=== PATIENT | male | born 1990 | race Caucasian/White ===

== ENCOUNTER 2019-12-01 16:46 | Inpatient (IN) | payer OTHER ==
[~2019-12-01] VITALS: Ht 185.4 cm; Wt 118.1 kg
--- NOTE | 2019-12-01 | NUR ---
RECEIVED REPORT FROM ER ON 29 YR OLD MALE WITH RECTAL ABSCESS. 20G PIV IN RT AC NS INFUSING AT 100 ML ON IV PUMP. SITE HEALTHY. PT IS ALERT AND ORIENTED X3. RESPIRATIONS ARE EVEN AND UNLABORED. TELE ON. CLEAR LIQUID DIET. PT VOIDING PER URINAL BUT CAUSE HIM PAIN WHEN MOVE. DILAUDID EFFECTIVE .COOPERATIVE WITH CARE. VS STABLE. CALL LIGHT WITHIN REACH. BED LOCKED AND IN LOW POSITION. NO DISTRESS NOTED.ORIENTED TO MS 2 AND ROOM. NO DISTRESS NOTED.
[2019-12-01] MEDS ORDERED: ONDANSETRON HCL INJ 2MG/ML 2ML 2 MG/ML VIAL IV STA (17:27)
[2019-12-01] MEDS ORDERED: HYDROMORPHONE 1MG/1ML INJ IV STA ×2 (17:27→22:59)
[2019-12-01] MEDS ORDERED: SODIUM CHLORIDE 0.9% 1000ML 1,000 ML IV STA (17:27)
[2019-12-01] MEDS ORDERED: ONDANSETRON HCL INJ 2MG/ML 2ML 2 MG/ML VIAL IV PRN ×2 (17:30→20:45)
[2019-12-01] MEDS ORDERED: MORPHINE SULFATE INJ 4 MG/ML INJ 1ML IV PRN (17:30)
[2019-12-01] MEDS ORDERED: CIPROFLOXACIN 400 MG/D5W 200ML 200 ML IV ONE (17:30)
[2019-12-01 17:46] LABS: BASOPHILS % 0.2 % (0.0-1.0); EOSINOPHILS % 0.2 % (0.0-6.0); LYMPHOCYTES # (AUTO) 1.8 (1.0-3.2); LYMPHOCYTES % 14.5 % (18.0-39.1); MEAN CORPUSCULAR HEMOGLOBIN 21.7 pg (28-32); MEAN CORPUSCULAR HGB CONC 30.3 g/dL (31-35); MEAN CORPUSCULAR VOLUME 71.6 fL (81-99); MONOCYTES % 8.1 % (4.4-11.3); NEUTROPHILS # (AUTO) 9.6 (2.1-6.9); NEUTROPHILS % 76.6 % (38.7-80.0); PLATELET COUNT 353 x10e3/uL (140-360); RED BLOOD COUNT 4.61 x10e6/uL (4.3-5.7); RED CELL DISTRIBUTION WIDTH 17.6 % (11.7-14.4)
[2019-12-01 18:06] LABS: ALANINE AMINOTRANSFERASE 53 IU/L (0-55); ALBUMIN 3.5 g/dL (3.5-5.0); ALBUMIN/GLOBULIN RATIO 0.9 (0.8-2.0); ALKALINE PHOSPHATASE 131 IU/L (40-150); ANION GAP 13.1 mmol/L (8-16); BLOOD UREA NITROGEN 10 mg/dL (7-26); BUN/CREATININE RATIO 10 (6-25); CARBON DIOXIDE 24 mmol/L (22-29); CHLORIDE 107 mmol/L (98-107); CREATININE, SERUM 1.01 mg/dL (0.72-1.25); EST GLOMERULAR FILTRATION RATE > 60 ML/MIN (60-); GLUCOSE 131 mg/dL (74-118); POTASSIUM 4.1 mmol/L (3.5-5.1); SODIUM 140 mmol/L (136-145)
[2019-12-01] MEDS ORDERED: METRONIDAZOLE 500MG/NS 100ML 100 ML IV ONE (18:30)
[2019-12-01] MEDS ORDERED: ACETAMINOPHEN 325 MG TAB ONE (19:26)
[2019-12-01] MEDS ORDERED: ACETAMINOPHEN 325 MG TAB PO PRN (19:30)
[2019-12-01] MEDS ORDERED: DOCUSATE SODIUM 100 MG CAP PO PRN (20:45)
[2019-12-01] MEDS ORDERED: MELATONIN 5 MG TABLET PO PRN (20:45)
[2019-12-01] MEDS ORDERED: HYDROMORPHONE 1MG/1ML INJ IV PRN ×2 (20:45→23:15)
[2019-12-01] MEDS ORDERED: METRONIDAZOLE 500MG/NS 100ML 100 ML IV SCH (22:00)
[2019-12-01] MEDS: SODIUM CHLORIDE 0.9% 1000ML 1,000 ML IV SCH (23:32)
[2019-12-01] MEDS: HYDROMORPHONE 1MG/1ML INJ IV PRN (23:32)
[2019-12-02] VITALS (10 sets, daily range): BP systolic 100–147; BP diastolic 56–86
--- NOTE | 2019-12-02 02:06 | History and Physical ---
CHIEF COMPLAINT: Rectal pain. HISTORY OF PRESENT ILLNESS: A 29-year-old male with no past medical history. He comes in with a 2-week history of rectal pain described with acute onset that began two weeks ago that progressively gotten worse over the last 2 weeks. He denies any constipation or any hemorrhoids. He does endorse having similar pain approximately one year or two years ago and he states that he was in [place] at that time, and he was in the process of getting a colonoscopy as his GI doctor wanted to rule out Crohn's disease. He now presents with worsening rectal pain. The patient was evaluated at [facility], had a CT scan that shows evidence of colitis and a possible perirectal abscess. The patient was then sent to our facility for evaluation by General surgeon. The patient was seen and evaluated in the ER. He is currently awake, alert, and oriented. Vital signs were stable during my evaluation. He states that the morphine does help with this pain. He denies any trauma to his rectum. Denies any blood. He reports it is very indurated and hard in nature. No fever at home. REVIEW OF SYSTEMS: Pertinent positives: Rectal pain. The rest of 14-point review of systems have been reviewed with the patient and are negative. ALLERGIES: PENICILLIN. HOME MEDICATIONS: None. PAST MEDICAL HISTORY: Reports none. PAST SURGICAL HISTORY: Reports none. FAMILY HISTORY: Hypertension and diabetes. SOCIAL HISTORY: No drugs, no alcohol, does not smoke. Good social support. PHYSICAL EXAMINATION: VITAL SIGNS: Temperature is 98.4, pulse 75, respiratory rate 16, blood pressure 131/78, pulse ox 98% on room air. GENERAL: In acute distress. Alert and oriented x3. Cooperative on examination. HEENT: Head is normocephalic, atraumatic. Eyes; pupils are equal, round, and reactive to light bilaterally. Extraocular movements intact bilaterally. Throat; no evidence of erythema or exudates in the posterior pharynx. Has poor dentition. NECK: Supple. Good range of motion. PULMONARY: Clear to auscultation bilaterally. No wheezing, rales, or rhonchi. No crackles appreciated. CARDIOVASCULAR: Positive S1, S2. No murmurs, rubs, or gallops appreciated. ABDOMEN: Soft, nondistended, and nontender to palpation. Bowel sounds present. : We will defer rectal examination to the General surgeon and GI specialist consulted on this case. SKIN: Intact. Warm to touch. Good cap refill. PSYCHIATRIC: Normal affect and mood. EXTREMITIES: No edema. Good range of motion throughout. LABORATORY DATA: Labs show white count 12.4, hemoglobin 10, hematocrit 33, MCV 71.6, and platelets of 353. Chemistry; sodium 140, potassium 4.1, chloride 107, bicarb 24, anion gap of 13, BUN is 10 and creatinine is 1, glucose 131. Serology coronavirus PCR pending. IMAGING STUDIES: This is a CT abdomen and pelvis with IV contrast performed at [facility] that shows impression no rectal mass, lesion, or bowel wall mass lesion or abscess formation seen. There is a mild dilatation of the transverse colon with air-fluid levels consistent with nonspecific ileus or colitis. The remainder of the bowel is normal. There is mild dilatation of the appendix containing a high CT attenuation without acute periappendiceal inflammatory edema and acute appendicitis is unlikely. There is multiple small subcentimeter lymph nodes in the perirectal region, in the pelvis and in the retroperitoneum, in the periaortic region as well as small subcentimeter mesenteric node seen greatest at the pericecal region consistent with mesenteric adenitis. Borderline splenomegaly. No other acute pathology seen in the abdomen and pelvis. IMPRESSION: 1. Concerns for perirectal abscess with underlying colitis seen on imaging studies. 2. Abdominal lymphadenopathy. PLAN: At this time, the lymph node enlargement could be secondary to inflammatory changes from current infection. As for his perirectal abscess or concerns of, General Surgery and GI has been consulted. The patient reports having not a history, but presumed diagnosis of Crohn's disease, in which he was supposed to get a colonoscopy, in which he did not get about a year ago. He had reported seeing a GI specialist in [place], was supposed to follow up and never did. At this time, continue with IV antibiotics with Cipro and Flagyl. Consult with ID. Go ahead and get blood cultures x2. Get a.m. labs. He will be on Lovenox after potential surgery tomorrow. We will go ahead and put him on RENUKA hoses. N.p.o. after midnight for presumed procedure. Consultants involved GI, General Surgery, and ID and we will continue with pain control. MD BLAIR Lund/DEBBIEL /[id number]
[2019-12-02] MEDS: HYDROMORPHONE 1MG/1ML INJ IV PRN ×6 (03:02→22:50)
[2019-12-02] MEDS: ONDANSETRON HCL INJ 2MG/ML 2ML 2 MG/ML VIAL IV PRN ×2 (03:07→22:51)
[2019-12-02] MEDS ORDERED: CIPROFLOXACIN 400 MG/D5W 200ML 200 ML IV SCH (05:00)
[2019-12-02] MEDS: METRONIDAZOLE 500MG/NS 100ML 100 ML IV SCH ×3 (06:26→18:29)
[2019-12-02] MEDS: SODIUM CHLORIDE 0.9% 1000ML 1,000 ML IV SCH ×2 (06:45→16:45)
--- NOTE | 2019-12-02 07:05 | NUR ---
BEDSIDE SHIFT REPORT RECEIVED FROM PM NURSE. PT AWAKE, ALERT, ORIENTED, IN STABLE CONDITION. WILL CONTINUE TO MONITOR.
[2019-12-02 07:14] LABS: BASOPHILS % 0.2 % (0.0-1.0); EOSINOPHILS % 0.1 % (0.0-6.0); HEMATOCRIT 32.1 % (38.2-49.6); HEMOGLOBIN 9.7 g/dL (14.0-18.0); LYMPHOCYTES # (AUTO) 1.4 (1.0-3.2); LYMPHOCYTES % 10.5 % (18.0-39.1); MEAN CORPUSCULAR HEMOGLOBIN 21.5 pg (28-32); MEAN CORPUSCULAR HGB CONC 30.2 g/dL (31-35); MEAN CORPUSCULAR VOLUME 71.2 fL (81-99); MONOCYTES # (AUTO) 1.2 (0.2-0.8); MONOCYTES % 8.7 % (4.4-11.3); NEUTROPHILS # (AUTO) 10.7 (2.1-6.9); NEUTROPHILS % 80.1 % (38.7-80.0); PLATELET COUNT 346 x10e3/uL (140-360); RED BLOOD COUNT 4.51 x10e6/uL (4.3-5.7); RED CELL DISTRIBUTION WIDTH 17.4 % (11.7-14.4)
[2019-12-02 07:26] LABS: ALANINE AMINOTRANSFERASE 45 IU/L (0-55); ALBUMIN 3.4 g/dL (3.5-5.0); ALBUMIN/GLOBULIN RATIO 0.9 (0.8-2.0); ALKALINE PHOSPHATASE 119 IU/L (40-150); ANION GAP 12.4 mmol/L (8-16); BLOOD UREA NITROGEN 7 mg/dL (7-26); BUN/CREATININE RATIO 7 (6-25); CALCIUM 8.8 mg/dL (8.4-10.2); CARBON DIOXIDE 23 mmol/L (22-29); CHLORIDE 105 mmol/L (98-107); CREATININE, SERUM 0.99 mg/dL (0.72-1.25); EST GLOMERULAR FILTRATION RATE > 60 ML/MIN (60-); GLUCOSE 119 mg/dL (74-118); POTASSIUM 3.4 mmol/L (3.5-5.1); SODIUM 137 mmol/L (136-145)
[2019-12-02] MEDS ORDERED: LIDOCAINE HCL 1% LOCAL INJ 20 ML VIAL ONE (11:31)
[2019-12-02] MEDS ORDERED: BUPIVACAINE 0.5%/EPI 30 ML SDV INJ ONE (11:31)
[2019-12-02] MEDS ORDERED: LIDOCAINE HCL 2% 30 ML TUBE ONE (11:31)
--- NOTE | 2019-12-02 11:32 | NUR ---
PT TAKEN DOWN TO OR FOR SURGERY; LEFT VIA STRETCHER IN STABLE CONDITION.
[2019-12-02 11:42] LABS: FERRITIN 4.18 ng/mL (21.81-274.66)
[2019-12-02] MEDS ORDERED: METRONIDAZOLE 500MG/NS 100ML 100 ML IV ONE (12:00)
[2019-12-02] MEDS ORDERED: HYDROMORPHONE 1MG/1ML INJ ONE (12:28)
--- NOTE | 2019-12-02 13:12 | NUR ---
REPORT FROM RECOVERY, PT HAD I&D OF RECTAL ABSCESS. MD PLACED PACKING TO PERIRECTAL ABSCESS WITH ABD PAD ON TOP AND MESH PANTIES. PT HAD STEVENSON PLACED, 16 KYRGYZ. PT ALSO RECEIVED 1 DOSE OF DILAUDID AND SLEEPING COMFORTABLY. PT LEFT ON 2L NC, 98% O2 SAT. PT'S BLOOD PRESSURE 131/84, HR 93. PT'S IV INTACT AND PATENT, LAST TEMP 98.1.
--- NOTE | 2019-12-02 13:22 | NUR ---
PT RETURNED FROM SURGERY TO ROOM 210, PT AWAKE, SPEAKING FULL SENTENCES, ORIENTED X3, NO C/O AT THIS TIME.
[2019-12-02] MEDS ORDERED: ACETAMINOPHEN 1000 MG/100 ML IV PRN (15:00)
[2019-12-02] MEDS ORDERED: POTASSIUM CHLORIDE 20 MEQ TAB CR PO ONE (15:00)
[2019-12-02] MEDS ORDERED: FENTANYL CITRATE/PF 100MCG/2 ML INJ ONE (15:08)
[2019-12-02] MEDS ORDERED: MIDAZOLAM HCL 2 MG/2 ML VIAL ONE (15:08)
--- NOTE | 2019-12-02 16:38 | Progress Note ---
DATE: Medicine Progress Note SUBJECTIVE: The patient underwent surgery today by General Surgery for perirectal abscess with the fistulectomy performed today. The patient did well postoperatively. I saw the patient postoperatively, he was alert, awake, and oriented with no complaints. PHYSICAL EXAMINATION: VITAL SIGNS: Temperature is 98.1, pulse 98, respiratory rate 16, blood pressure 131/84, and pulse ox 98% on 2 L nasal cannula. GENERAL: Not in acute distress. Alert and oriented x3. Cooperative on exam. PULMONARY: Clear to auscultation bilaterally. No wheezing, rales, or rhonchi. No crackles appreciated. CARDIOVASCULAR: Positive S1, S2. No murmurs, rubs, or gallops. ABDOMEN: Soft, nontender to palpation. Bowel sounds present. MUSCULOSKELETAL: Strength is 5/5 throughout. No evidence of any muscle deficits on examination. SKIN: Intact, warm to touch. Good cap refill. PSYCHIATRIC: Normal affect and mood. EXTREMITIES: No edema. Good range of motion throughout. LABORATORY FINDINGS: Show white count 13, hemoglobin 9.7, hematocrit 32, platelets of 346, MCV is 71. Sodium 137, potassium 3.4, chloride 105, bicarb 23, anion gap of 12. Iron saturation is 9%. MICROBIOLOGY: None. IMAGING: None. IMPRESSION: 1. Status post perirectal abscess with fistulectomy performed today by General Surgery, 12/02/2019. 2. Abdominal lymphadenopathy. 3. Iron deficiency anemia. PLAN: At this time, continue with postoperative care with pain control and local wound care. General Surgery is following. Continue with IV antibiotics, for which ID has been consulted. Await final wound cultures for a targeted IV antibiotic therapy. GI has been consulted. This patient will likely need some sort of colonoscopy, this patient may have underlying Crohn disease, but we will defer that to GI. Continue with RENUKA price for now. Get a.m. labs. Monitor closely. Discussed plan of care with nursing staff. MD BLAIR Lund/DEBBIEL /[id number]
[2019-12-02] MEDS: LEVOFLOXACIN 500MG/D5W 100ML 100 ML IV SCH (17:24)
[2019-12-02] MEDS ORDERED: SEVOFLURANE INHAL SOLN 250 ML PEN BTL ONE (18:22)
[2019-12-02] MEDS ORDERED: ONDANSETRON HCL INJ 2MG/ML 2ML 2 MG/ML VIAL ONE (18:22)
[2019-12-02] MEDS ORDERED: LIDOCAINE HCL 2% LOCAL INJ 5 ML SDV VIAL INJ ONE (18:22)
[2019-12-02] MEDS ORDERED: DEXAMETHASONE SOD PHOS INJ 4 MG/ML VIAL ONE (18:22)
[2019-12-02] MEDS ORDERED: PROPOFOL IV EMULSION 10 MG/ML 20 ML VIAL ONE (18:22)
--- NOTE | 2019-12-02 19:14 | Operative Report ---
DATE OF PROCEDURE: 12/02/2019 SURGEON: Rakesh Chen MD PREOPERATIVE DIAGNOSIS: Perirectal abscess with fistula. POSTOPERATIVE DIAGNOSIS: Perirectal abscess with fistula. OPERATION PERFORMED: Incision and drainage of perirectal abscess and fistulectomy. ANESTHESIA: General. COMPLICATIONS: None. ESTIMATED BLOOD LOSS: Minimal. DESCRIPTION OF PROCEDURE: With the patient lying in bed in the lithotomy position under good general anesthesia, the perineum was prepped with Betadine solution and draped in the usual manner. Examination at this point revealed the presence of a perirectal abscess at the 1 o'clock position with a fluctuant abscess within a clear opening anteriorly, where there was pus gushing from the internal opening. The abscess cavity was then entered at the 1 o'clock position and a fistula tract was easily identified and a fistula probe easily traveled down to the internal opening. The entire fistula tract was then opened up and divided over the necrotic tissue was removed. The wound was then copiously irrigated with dilute Betadine solution and the wound was then packed with quarter-inch iodoform gauze. A dressing was applied. The sponge, lap, and needle counts were correct. The patient tolerated the procedure well and returned to the recovery room in stable condition. MD ADELSO Haskins/MODL /[id number]
--- NOTE | 2019-12-02 19:15 | NUR ---
BEDSIDE SHIFT REPORT RECEIVED FROM DAY RN. PT IS ALERT AND ORIENTED X3. RESPIRATIONS ARE EVEN AND UNLABORED. PT RESTING IN BED ON SIDE. PT REPORTS PAIN LESS AFTER SURGERY TODAY. RT 20G PIV - NS INFUSING AT 100 ML/HR. STEVENSON CATH PATENT AND DRAINING CLEAR YELLOW URINE.NO DISTRESS NOTED. CALL LIGHT WITHIN REACH. BED LOCKED AND IN LOW POSITION. BED ALARM ON. REMINDED PT TO CALL FOR ASSISTANCE TO BATHROOM.
[2019-12-03] VITALS (7 sets, daily range): BP systolic 96–134; BP diastolic 55–72
[2019-12-03] MEDS: METRONIDAZOLE 500MG/NS 100ML 100 ML IV SCH ×4 (00:23→17:28)
[2019-12-03] MEDS: HYDROMORPHONE 1MG/1ML INJ IV PRN ×5 (02:25→22:00)
[2019-12-03] MEDS: SODIUM CHLORIDE 0.9% 1000ML 1,000 ML IV SCH ×2 (05:42→15:15)
[2019-12-03] MEDS: ONDANSETRON HCL INJ 2MG/ML 2ML 2 MG/ML VIAL IV PRN ×2 (05:54→19:35)
[2019-12-03 06:21] LABS: BASOPHILS % 0.3 % (0.0-1.0); HEMATOCRIT 32.6 % (38.2-49.6); HEMOGLOBIN 9.5 g/dL (14.0-18.0); LYMPHOCYTES % 17.5 % (18.0-39.1); MEAN CORPUSCULAR HEMOGLOBIN 21.2 pg (28-32); MEAN CORPUSCULAR HGB CONC 29.1 g/dL (31-35); MEAN CORPUSCULAR VOLUME 72.8 fL (81-99); MONOCYTES # (AUTO) 1.2 (0.2-0.8); MONOCYTES % 10.1 % (4.4-11.3); NEUTROPHILS # (AUTO) 8.3 (2.1-6.9); NEUTROPHILS % 71.8 % (38.7-80.0); PLATELET COUNT 339 x10e3/uL (140-360); RED BLOOD COUNT 4.48 x10e6/uL (4.3-5.7); RED CELL DISTRIBUTION WIDTH 17.6 % (11.7-14.4)
[2019-12-03 06:41] LABS: BLOOD UREA NITROGEN 9 mg/dL (7-26); BUN/CREATININE RATIO 10 (6-25); CARBON DIOXIDE 26 mmol/L (22-29); CHLORIDE 107 mmol/L (98-107); CREATININE, SERUM 0.87 mg/dL (0.72-1.25); EST GLOMERULAR FILTRATION RATE > 60 ML/MIN (60-); GLUCOSE 98 mg/dL (74-118); SODIUM 141 mmol/L (136-145)
--- NOTE | 2019-12-03 07:00 | NUR ---
BEDSIDE SHIFT REPORT RECEIVED FROM THE CARDIOLOGY CONSULTANTS RN. EDUCATED PT ABOUT FALL PRECAUTIONS. PT VERBALIZED UNDERSTANDING. CALL LIGHT WITH IN EASY REACH. INSTRUCTED PT TO USE CALL LIGHT FOR ALL THE NEEDS. BED IS LOW AND LOCKED. SIDE RAILS X2. BED ALARM IS ON. PT DENIES NEEDS AT THIS TIME.
[2019-12-03] MEDS: HYDROCODONE/APAP 7.5MG-325MG 1 EA TAB PO PRN ×2 (09:27→16:46)
[2019-12-03] MEDS ORDERED: SODIUM FERRIC GLUCONATE COMPLX 125 MG in SODIUM CHLORIDE 0.9% 100 ML 100 ML IV ONE (09:30)
[2019-12-03] MEDS: PROMETHAZINE 12.5MG/ NACL 0.9% 12.5 MG/50 ML BAG IV PRN ×2 (10:05→22:00)
--- NOTE | 2019-12-03 12:45 | NUR ---
SITZ BATH GIVEN PER DR Chel LÓPEZ.
--- NOTE | 2019-12-03 15:22 | Progress Note ---
DATE: SUBJECTIVE: Mr. Abarca is feeling better. There are no new complaints. Status post I and D, unfortunately there was no culture sent. PHYSICAL EXAMINATION: GENERAL: Currently alert, oriented, does not seem in acute distress. VITAL SIGNS: Stable, afebrile. HEENT: Not icteric. NECK: Supple. CHEST: Clear. HEART: S1-S2. ABDOMEN: Soft. Bowel sounds present. No tenderness. EXTREMITIES: No edema. Wound is packed. IMPRESSION AND PLAN: 1. Perirectal abscess, status post fistulectomy, obesity. From Infectious Disease point of view, the patient is doing well. Continue with local care. Continue with IV antibiotic for now. Once clinically better, we will change him to oral antibiotic, Levaquin and Flagyl for 14 days. We will keep him on IV antibiotic for the time being. 2. Anemia. 3. We will follow. MD ADENIKE Sharma/ARNALDO /[id number]
[2019-12-03] MEDS: LEVOFLOXACIN 500MG/D5W 100ML 100 ML IV SCH (16:23)
--- NOTE | 2019-12-03 16:30 | NUR ---
STEVENSON REMOVED PER THE ORDER BY DR. Chel LÓPEZ. TIP INTACT. NO DISTRESS NOTED. PT DENIED FURTHER NEEDS.
--- NOTE | 2019-12-03 17:00 | NUR ---
PT VOIDED. 150 ML CLEAR YELLOW URINE NOTED IN URINAL.
--- NOTE | 2019-12-03 19:00 | NUR ---
Bedside nursing report completed with morning nurse. Pt alert and oriented to name, sitting on toilet, soft BM. Mild pain, medicated by morning nurse. Rectal iodoform dressing coming out, removed by patient. Gauze and mesh underwear applied. Call light within reach.
--- NOTE | 2019-12-03 19:15 | NUR ---
BEDSIDE SHIFT REPORT GIVEN TO THE [employer] MACHINE RN. PT DENIED FURTHER NEEDS.
--- NOTE | 2019-12-03 21:44 | Progress Note ---
DATE: 12/03/2019 Medicine Progress Note SUBJECTIVE: The patient reports doing much better today. His diet has been advanced. He has some minimal pain, but much improved tremendously. No overnight events. OBJECTIVE: VITAL SIGNS: Temperature 99, pulse 83, respiratory rate 17, blood pressure 134/72, pulse ox 96% on room air. GENERAL: In acute distress. Alert and oriented x3. Cooperative on exam. HEENT: Head is normocephalic, atraumatic. Eyes; pupils are reactive to light bilaterally. PULMONARY: Clear to auscultation bilaterally. No wheezing, rales, or rhonchi. No crackles appreciated. CARDIOVASCULAR: Positive S1 and S2. No murmurs, rubs, or gallops. ABDOMEN: Soft, nondistended, and nontender to palpation. Bowel sounds present. MUSCULOSKELETAL: No evidence of any muscle deficits on examination. NEUROLOGICAL: Alert and oriented x3. SKIN: Intact, warm to touch. Good cap refill. PSYCHIATRIC: Normal affect and mood. EXTREMITIES: No edema. Good range of motion throughout. LABORATORY DATA: Labs show white count of 11.5, hemoglobin 9.5, hematocrit 33, MCV still low at 72, platelets of 339. Chemistry; sodium 141, potassium 4, chloride 107, bicarb 26, anion gap of 12, BUN is 0.87. His iron saturation 9%. There are several tumour markers that are still pending. IMPRESSION: 1. Status post perirectal abscess with fistulectomy performed on 12/02/2019, by General Surgery. 2. Abdominal lymphadenopathy. 3. Iron deficiency anemia. 4. Underlying colitis. PLAN: At this time, the patient is doing well. Continue with postop care and pain control. Local wound care. General Surgery is following. As per ID, continue with IV antibiotics and discharged on oral Flagyl and Levaquin for 14 days. As per GI, the patient will follow up as an outpatient 3-4 weeks after his colitis is resolved and does need a colonoscopy for possible Crohn's evaluation. As per Hematology, he will continue with iron infusion and outpatient followup in terms of the lymphadenopathy with further imaging as an outpatient. We will continue same plan of care. Monitor closely. Get a.m. labs. Possible discharge on Thursday if cleared by Surgery. Jiries S Dahu, MD JSD/MODL /[id number]
[2019-12-04 00:15] VITALS: BP 104/59
[2019-12-04] MEDS ORDERED: CYANOCOBALAMIN INJ 1,000 MCG/ML VIAL IM STA (00:41)
[2019-12-04] MEDS: METRONIDAZOLE 500MG/NS 100ML 100 ML IV SCH ×3 (01:00→11:38)
[2019-12-04 04:35] VITALS: BP 117/76
[2019-12-04] MEDS ORDERED: IRON SUCROSE 100 MG in SODIUM CHLORIDE 0.9% 100 ML 100 ML IV SCH ×2 (05:00→09:30)
[2019-12-04] MEDS: HYDROMORPHONE 1MG/1ML INJ IV PRN (05:00)
[2019-12-04] MEDS: SODIUM CHLORIDE 0.9% 1000ML 1,000 ML IV SCH (05:00)
--- NOTE | 2019-12-04 05:35 | NUR ---
Left message with Dr. Chris Goff on-call, order for Venofer cannot be filled until Pharmacy arrives. Awaiting call back for further instructions.
[2019-12-04 05:49] LABS: BASOPHILS % 0.5 % (0.0-1.0); EOSINOPHILS # (AUTO) 0.1 (0.0-0.4); EOSINOPHILS % 0.7 % (0.0-6.0); HEMATOCRIT 32.2 % (38.2-49.6); HEMOGLOBIN 9.4 g/dL (14.0-18.0); LYMPHOCYTES # (AUTO) 2.4 (1.0-3.2); LYMPHOCYTES % 29.9 % (18.0-39.1); MEAN CORPUSCULAR HEMOGLOBIN 21.2 pg (28-32); MEAN CORPUSCULAR HGB CONC 29.2 g/dL (31-35); MEAN CORPUSCULAR VOLUME 72.7 fL (81-99); MONOCYTES # (AUTO) 0.8 (0.2-0.8); MONOCYTES % 9.7 % (4.4-11.3); NEUTROPHILS # (AUTO) 4.8 (2.1-6.9); NEUTROPHILS % 58.5 % (38.7-80.0); PLATELET COUNT 358 x10e3/uL (140-360); RED BLOOD COUNT 4.43 x10e6/uL (4.3-5.7); RED CELL DISTRIBUTION WIDTH 17.8 % (11.7-14.4)
[2019-12-04 06:20] LABS: ANION GAP 13.6 mmol/L (8-16); BLOOD UREA NITROGEN 8 mg/dL (7-26); BUN/CREATININE RATIO 9 (6-25); CALCIUM 8.7 mg/dL (8.4-10.2); CARBON DIOXIDE 24 mmol/L (22-29); CHLORIDE 108 mmol/L (98-107); CREATININE, SERUM 0.93 mg/dL (0.72-1.25); EST GLOMERULAR FILTRATION RATE > 60 ML/MIN (60-); GLUCOSE 104 mg/dL (74-118); POTASSIUM 3.6 mmol/L (3.5-5.1); SODIUM 142 mmol/L (136-145)
--- NOTE | 2019-12-04 06:45 | NUR ---
Pt lying quietly in bed, RR 18 even and unlabored. Left side lying. No acute distress noted.
[2019-12-04 07:36] VITALS: BP 111/58
[2019-12-04 08:14] VITALS: BP 111/58
[2019-12-04] MEDS ORDERED: CYANOCOBALAMIN INJ 1,000 MCG/ML VIAL IM SCH (09:00)
[2019-12-04] MEDS: HYDROCODONE/APAP 7.5MG-325MG 1 EA TAB PO PRN (09:59)
--- NOTE | 2019-12-04 10:29 | NUR ---
Received bedside shift report from off going nurse. Patient is in stable condition, no s/s of distress noted. Telemetry applied and working. IV to the right forearm Asymptomatic and patient Fluids running @ 100ml/hr , with transparent dressing applied C/D/I. Bed in lowest position and locked. Call light within reach.
[2019-12-04 12:00] VITALS: BP 128/64
--- NOTE | 2019-12-04 14:25 | NUR ---
PT IS A 3 DAY OBS. CALL TO [facility] FOR INPT ORDER, UNLESS HE PLANS TO DC HOME TODAY. PT IS RECEIVING PAIN MEDS ATC, IV ABX AND WOUND CARE. WILL AWAIT CALL BACK.
[2019-12-04] MEDS ORDERED: FLAGYL250 MG PO (15:19)
[2019-12-04] MEDS ORDERED: LEVAQUIN500 MG PO (15:21)
[2019-12-04] MEDS ORDERED: TYLENOL WITH C1 EACH PO (15:21)
--- NOTE | 2019-12-04 16:12 | NUR ---
Patient discharged home-Patient off the unit @ 1600 via ambulation accompanied by an RN to the lobby. Patient in stable condition, no s/s of distress noted. No pain voiced. IV access removed with tip intact. All personal belongings taken with the patient. Discharge teaching and instructions given to the patient. Patient verbalized understanding by the patient.
--- NOTE | 2019-12-04 16:37 | Discharge Summary ---
FINAL DISCHARGE DIAGNOSES: 1. Status post perirectal abscess with fistulectomy performed on 12/02/2019 by General Surgery. 2. Abdominal lymphadenopathy -- outpatient followup with Hematology. 3. Iron-deficiency anemia. 4. Colitis, concerning for underlying Crohn's. CONSULTANTS: 1. GI. 2. General Surgery. 3. Hematology. 4. ID. PHYSICAL EXAMINATION: VITAL SIGNS: Temperature is 98, pulse 76, respiratory rate is 20, blood pressure 128/64, pulse ox 96% on room air. LABORATORY DATA: Labs show white count 8.1, hemoglobin 9.4, hematocrit 32, platelets of 358. Chemistry, sodium 142, potassium 3.6, chloride 108, bicarb 24, anion gap of 13. BUN is 8, creatinine 0.93, glucose 104. Calcium is 8.7. His alpha-fetoprotein 3.1. CEA 2.7, CA-19-9 is 3, CA-125 is 7.3, and folic acid 12.3. Vitamin B12 was 608, iron saturation 9%. Atypical p-ANCA was pending. Serology coronavirus was negative. MICROBIOLOGY: None. IMAGING DATA: Imaging was performed at the outside ER that is in the chart, which showed no evidence of rectal mass lesion or abdominal wall mass lesion or abscess formation. There is some mild dilatation of the transverse colon with air-fluid levels consistent with nonspecific ileus or colitis. There are multiple small subcentimeter lymph nodes in the perirectal region as well as in the pelvis and retroperitoneum. Some mild dilatation of the appendix, but no evidence of acute appendicitis. HOSPITAL COURSE: A 29-year-old male, who was sent in from an outside freestanding ER to our ER needing an admission for further evaluation and management due to underlying rectal abscess. Imaging studies performed at the outside ER showed no evidence of any rectal abscess, but physical exam was consistent with a rectal abscess needing further evaluation and management. General Surgery was consulted and the patient underwent on 12/02/2019, a status post perirectal abscess drainage with a fistulectomy. Postoperatively, the patient was doing well with no complaints. There was some concern that the patient may have underlying Crohn's based on the underlying rectal fistula that was noted in surgery. GI was consulted and the patient was recommended to follow up in 3 to 4 weeks for an outpatient colonoscopy. The patient also had abdominal lymphadenopathy, which could be secondary to underlying infectious etiology. He is maintained on broad-spectrum IV antibiotics as per ID was following. All cultures were negative. He was also found to have iron-deficiency anemia, requiring IV iron infusion and Hematology was consulted. The patient improved throughout the hospital course, back to normal baseline with no complaints. He was discharged on oral antibiotics. On the day of discharge, vital signs were stable, labs reviewed and stable. The patient is seen, evaluated, and examined thoroughly on the day of discharge. No other complaints. The patient verbalized understanding and agrees to plan of care to follow up accordingly as an outpatient with the primary care physician in 1 week, General Surgery in 7 to 10 days, GI in 3 to 4 weeks, Hematology in 2 weeks' time. The patient was discharged on oral antibiotics as well as pain control as recommendations by all the consultants. The patient has been cleared for discharge by all consultants. MEDICATIONS: See med reconciliation form. DISPOSITION: To home. CONDITION: Stable. DIET: Heart healthy. In the event of any worsening symptoms, the patient advised to come back to the ED for further evaluation. Discharge summary took greater than 35 minutes. Once again, the patient was educated about following up with all the consultants as described above. MD BLAIR Lund/ARNALDO /[id number]
--- NOTE | 2019-12-05 10:04 | Consultation ---
DATE OF CONSULTATION: HISTORY OF PRESENT ILLNESS: A 29-year-old white male, denies any past medical history, comes in with 2 weeks history of pain. The patient has history of hemorrhoids, comes in with pain perirectal area. He was seen by GI. The patient was supposed to get colonoscopy, comes to the emergency room with pain in the rectal area. He was seen by GI, was seen by surgery and was found to have perirectal abscess. He underwent debridement today. PAST MEDICAL HISTORY: Denies. PAST SURGICAL HISTORY: As above. ALLERGIES: NKA. SOCIAL HISTORY: There is no smoking, drug abuse, or alcohol abuse. FAMILY HISTORY: Unremarkable. PHYSICAL EXAMINATION: GENERAL: Currently alert and oriented, does not seem in acute distress. VITAL SIGNS: Stable. Currently afebrile. HEENT: He is not icteric. NECK: Supple. CHEST: Clear. HEART: S1 and S2. ABDOMEN: Soft. IMPRESSION: I think the patient has a rectal abscess. Agree with Levaquin and Flagyl. Culture sensitivity is pending. We will modify after we re-evaluate in the morning. MD ADENIKE Sharma/ARNALDO /[id number]
== END 2019-12-04 15:56 | disposition home or self-care (01) | DRG 333 ==
LOC: ER 16:46 → ERHOLD 17:35 → MED/SURG2 12-02 00:02 → OBSVTOIN 12-04 14:45
PROVIDERS: ADMIT Internal Medicine; ATTEND Internal Medicine
PROC: 0DBP0ZZ Excision of Rectum, Open Approach (ICD-10-PCS; principal; 2019-12-02 11:56)
DX: K61.1 Rectal abscess (principal); K50.90 Crohn's disease, unspecified, without complications; R59.0 Localized enlarged lymph nodes; D50.9 Iron deficiency anemia, unspecified; E66.9 Obesity, unspecified; Z68.34 Body mass index [BMI] 34.0-34.9, adult
CPT/HCPCS: 36415; 80048; 80053; 82105; 82378; 82607; 82728; 82746; 83540; 84466; 85025; 85045; 85651; 86140; 86256; 86301; 86304; 86671; 87635; 96361; 99284; G0378; J1100; J1170; J1756; J1956; J2001; J2250; J2270; J2405; J2550; J2916; J3010; J3420; J7030

== ENCOUNTER → 2020-02-14 | Day surgery (SDC) | payer OTHER ==
[~2020-02-14] MED LIST: FLAGYL250 MG PO; HYOSCYAMINE 0.125 MG TAB ONE; LEVAQUIN500 MG PO; LIDOCAINE HCL 2% LOCAL INJ 5 ML SDV VIAL INJ ONE; PANTOPRAZOLE 40 MG 10ML VIAL ONE; PROPOFOL IV EMULSION 10 MG/ML 20 ML VIAL ONE; TYLENOL WITH C1 EACH PO
[2020-02-14 12:30] VITALS: BP 122/81
--- NOTE | 2020-02-14 12:54 | Operative Report ---
DATE OF PROCEDURE: 02/14/2020 SURGEON: Gabe Goff MD PROCEDURES: EGD with biopsies and colonoscopy with biopsies. INDICATIONS FOR EGD: Heartburn, indigestion. INDICATIONS FOR COLONOSCOPY: Diarrhea, rectal bleeding. MEDICATIONS: The patient was done under MAC, please see anesthesiologist's note. PROCEDURE IN DETAIL: With the patient in the left lateral decubitus position, a flexible fiberoptic Olympus gastroscope was introduced into the esophagus under direct visualization without any difficulty. There was some patchy erythema noted in distal esophagus. The scope was then advanced with ease into the stomach. Mucosa overlying the antrum and the body revealed some patchy erythema and [id number] edema, and biopsies were obtained and sent to stain for H. pylori. Pylorus was of normal contour and shape, was intubated with ease and the scope was advanced all the way to the second portion of the duodenum. Biopsies were obtained from the proximal second portion and the duodenal bulb to rule out sprue. The scope was then withdrawn back into the stomach and retroflexed, mucosa overlying the fundus and the cardia appeared to be within normal limits. The scope was then straightened out, it was subsequently withdrawn, and the patient tolerated the procedure well. IMPRESSION: 1. Distal esophagitis, mild. 2. Gastritis, biopsied, biopsies sent to stain for Helicobacter pylori. 3. Rule out sprue. PLAN: Follow up histology. Initiate Protonix 40 mg one p.o. q.a.m. before meals. The patient was then turned around and after adequate lubrication of the anal canal, a flexible fiberoptic Olympus colonoscope was inserted into the rectum with ease and advanced all the way to the cecum. Mucosa overlying the cecum, ascending, transverse, descending, sigmoid, and rectum revealed some diffuse inflammatory changes and multiple random biopsies were obtained. The ileocecal valve was intubated and the scope was advanced into the terminal ileum. Biopsies were obtained. The scope was then retroflexed into the distal rectum and small internal hemorrhoids were noted, none of which was actively bleeding. The scope was then straightened out, it was subsequently withdrawn, and the patient tolerated the procedure well. IMPRESSION: 1. Colitis, diffuse. Random biopsies obtained. 2. Proctitis, biopsied. 3. Internal hemorrhoids, none actively bleeding. PLAN: Follow up histology. Follow up stool studies. Check CRP, sedimentation rate, and IBD panel. Initiate Lialda 1.2 g 4 tablets p.o. daily with food. Bentyl 20 mg one p.o. t.i.d. The patient will need to have colon re-evaluated after 3 to 4 months of therapy. MD LIZ Manning/ARNALDO /[id number]
[2020-02-14 13:20] LABS: WBC,FECAL (FECAL LACTOFERRIN) POSITIVE (NEGATIVE)
[2020-02-15 08:29] LABS: C DIFFICILE TOXIN A&B AMP PROB NEGATIVE (NEGATIVE)
== END | disposition home or self-care (01) ==
LOC: OR 08:50
PROVIDERS: ATTEND Internal Medicine Gastroenterology
DX: K29.50 Unspecified chronic gastritis without bleeding (principal); K29.80 Duodenitis without bleeding; K52.9 Noninfective gastroenteritis and colitis, unspecified; K20.9 Esophagitis, unspecified; K62.89 Other specified diseases of anus and rectum; K21.9 Gastro-esophageal reflux disease without esophagitis; K64.8 Other hemorrhoids; Z88.0 Allergy status to penicillin; Z01.812 Encounter for preprocedural laboratory examination; Z11.59 Encounter for screening for other viral diseases; Z68.33 Body mass index [BMI] 33.0-33.9, adult
CPT/HCPCS: 36415; 43239; 45380; 83630; 83993; 85651; 86140; 86256; 86671; 87045; 87177; 87328; 87493; C9113; J2001; J2704; U0002; 45378

== ENCOUNTER → 2020-04-13 | Outpatient (CLI) | payer OTHER ==
[~2020-04-13] MED LIST changes: -HYOSCYAMINE 0.125 MG TAB ONE; -LIDOCAINE HCL 2% LOCAL INJ 5 ML SDV VIAL INJ ONE; -PANTOPRAZOLE 40 MG 10ML VIAL ONE; -PROPOFOL IV EMULSION 10 MG/ML 20 ML VIAL ONE
--- NOTE | 2020-04-13 13:41 | Diagnostic Imaging Report ---
EXAM: Right upper quadrant abdominal ultrasound INDICATION: Elevated liver enzymes COMPARISON: None. TECHNIQUE: Transverse and longitudinal images of the right upper quadrant abdomen were obtained FINDINGS: Liver: Size: 14.5 cm in the right midclavicular line, normal Appearance: Normal echogenicity, smooth contour Mass: No focal masses Gallbladder: No gallbladder distension, pericholecystic fluid, wall thickening, stone, or reported sonographic Rizo's sign. Gallbladder wall measures 4 mm. Bile Ducts: Intrahepatic Ducts: No dilatation Extrahepatic Ducts: Common bile duct measures 3 mm Pancreas: Visualized portions of the pancreatic head, neck and proximal body are normal. Kidney: The right kidney measures 11.3 cm without evidence of hydronephrosis or stone. Vessels: Aorta: Visualized portions are normal Inferior Vena Cava: Visualized portions are normal Main Portal Vein: 1.0 cm, normal size with hepatopetal flow. Free Fluid: No ascites or pleural effusion IMPRESSION: No sonographic evidence of cholelithiasis or cholecystitis. Signed by: Serg Harmon MD on 04/13/2020 1:38 PM
== END ==
LOC: US 12:47
PROVIDERS: ATTEND Internal Medicine Gastroenterology
DX: R74.8 Abnormal levels of other serum enzymes (principal); R94.5 Abnormal results of liver function studies
CPT/HCPCS: 76705